=== PATIENT | female | born 1990 | race American Indian/Alaskan Native ===

== ENCOUNTER 2020-03-09 14:33 | Emergency (ER) | payer SELFPAY ==
[2020-03-09 14:52] VITALS: BP 121/69
[2020-03-09] MEDS ORDERED: IPRATROPIUM/ALBUTEROL SULFATE 3 ML AMPUL.NEB IH ONE (15:46)
[2020-03-09] MEDS ORDERED: ALBUTEROL 2.5 MG/3 ML NEBU IH ONE (15:48)
[2020-03-09] MEDS ORDERED: dexAMETHasone 20 MG/5 ML VIAL IM ONE (15:48)
[2020-03-09] MEDS ORDERED: IPRATROPIUM 0.02% NEBU 2.5 ML IH ONE (15:48)
--- NOTE | 2020-03-09 15:50 | Emergency Department Report ---
Blank Doc - Documentation Documentation: 29-year-old female that presents with asthma exacerbation. This initial assessment/diagnostic orders/clinical plan/treatment(s) is/are subject to change based on patient's health status, clinical progression and re- assessment by fellow clinical providers in the ED. Further treatment and workup at subsequent clinical providers discretion. Patient/guardians urged not to elope from the ED as their condition may be serious if not clinically assessed and managed. Initial orders include: 1- Patient sent to [facility] for further evaluation and treatment 2- breathing treatment
--- NOTE | 2020-03-09 16:20 | XRay Report ---
CHEST 1 VIEW INDICATION: sob COMPARISON: None FINDINGS: Support devices: None Heart: Normal Lungs/Pleura: No acute pulmonary or pleural findings. IMPRESSION: 1. No acute disease. Signer Name: Ezequiel Fu MD Signed: 03/09/2020 4:15 PM Workstation Name: [id number]
--- NOTE | 2020-03-09 16:22 | Emergency Department Report ---
ED Shortness of Breath HPI - General Chief Complaint: Adult Asthma Stated Complaint: ASTHMA Time Seen by Provider: 03/09/20 15:48 Source: patient Mode of arrival: Ambulatory Limitations: No Limitations - History of Present Illness Initial Comments: 29-year-old female, history of asthma, presents to ED with shortness of breath and wheezing since yesterday. Patient states she does not have an albuterol inhaler at home. Patient denies any fever. Reports cough associated with her wheezing. She denies any previous Covid infection or known contact with anyone who has tested positive for COVID-19. Complaint: "asthma attack" -: Last night Severity: moderate Consistency: constant Improves With: nothing Worsens With: exertion Known History Of: asthma Associated Symptoms: cough Treatments Prior to Arrival: none - Related Data Home Oxygen Therapy: No Previous Rx's Medication Instructions Recorded Last Taken Type Albuterol Sulfate [Proventil Hfa] 2 puff IH Q4HR PRN #1 hfa.aer.ad 03/09/20 Unknown Rx predniSONE [Deltasone] 50 mg PO QDAY #5 tab 03/09/20 Unknown Rx Allergies Allergy/AdvReac Type Severity Reaction Status Date / Time No Known Allergies Allergy Unverified 03/09/20 14:49 ED Review of Systems ROS: Stated complaint: ASTHMA Other details as noted in HPI Comment: All other systems reviewed and negative Constitutional: denies: chills, fever Respiratory: cough, wheezing Gastrointestinal: denies: vomiting, diarrhea ED Past Medical Hx - Past Medical History Previous Medical History?: Yes Hx Asthma: Yes - Surgical History Past Surgical History?: No - Social History Smoking Status: Never Smoker Substance Use Type: None - Medications Home Medications: Home Medications Medication Instructions Recorded Confirmed Last Taken Type Albuterol Sulfate [Proventil Hfa] 2 puff IH Q4HR PRN #1 hfa.aer.ad 03/09/20 Unk nown Rx predniSONE [Deltasone] 50 mg PO QDAY #5 tab 03/09/20 Unknown Rx ED Physical Exam - General Limitations: No Limitations General appearance: alert, in no apparent distress - Head Head exam: Present: atraumatic, normocephalic - Eye Eye exam: Present: normal appearance, EOMI - ENT ENT exam: Present: mucous membranes moist - Respiratory Respiratory exam: Present: wheezes - Cardiovascular Cardiovascular Exam: Present: tachycardia - GI/Abdominal GI/Abdominal exam: Present: soft. Absent: distended, tenderness - Extremities Exam Extremities exam: Present: normal inspection - Neurological Exam Neurological exam: Present: alert, oriented X3 - Psychiatric Psychiatric exam: Present: normal affect, normal mood - Skin Skin exam: Present: warm, dry, intact, normal color ED Course Vital Signs 03/09/20 03/09/20 14:51 16:33 Temperature 98.4 F Pulse Rate 102 H Pulse Rate [ 105 H Anterior Bilateral Throughout] Respiratory 18 Rate Respiratory 18 Rate [Anterior Bilateral Throughout] Blood Pressure 121/69 [Right] O2 Sat by Pulse 98 Oximetry ED Medical Decision Making - Radiology Data Radiology results: report reviewed, image reviewed - Medical Decision Making 29-year-old female presents to ED with acute asthma exacerbation. O2 sats are normal. Patient has slight wheezing in all lung ya. Patient given IM Dec adron and albuterol/Atrovent nebs. Wheezing is currently resolved. Chest x-ray is negative for any acute findings. She will be discharged at this time. Prescriptions given. Outpatient follow-up advised, return precautions given. - Differential Diagnosis Asthma, pneumonia, URI Critical care attestation.: If time is entered above; I have spent that time in minutes in the direct care of this critically ill patient, excluding procedure time. ED Disposition Clinical Impression: Acute asthma exacerbation Disposition: - TO HOME OR SELFCARE Is pt being admited?: No Condition: Stable Instructions: Asthma, Adult Referrals: PRIMARY [facility] [Primary Care Provider] - 3-5 Days [facility] [Provider Group] - 3-[address] [facility] [Outside] - 3-5 Days
== END 2020-03-09 18:29 | disposition home or self-care (01) ==
LOC: ED 14:33
DX: J45.901 Unspecified asthma with (acute) exacerbation (principal); Z79.899 Other long term (current) drug therapy
CPT/HCPCS: 71045; 94640; 96372; 99283; J1100; 94644